=== PATIENT | female | born 1965 | race Two or more races ===

== ENCOUNTER 2017-08-16 17:03 | Emergency (ER) | payer MEDICAID ==
[~2017-08-16] VITALS: Ht 154.9 cm; Wt 85.3 kg
[2017-08-16 17:52] LABS: HEMATOCRIT 42.6 % (34.6-47.8); HEMOGLOBIN 14.3 g/dL (11.7-16.4); WHITE BLOOD COUNT 9.4 x10^3/uL (3.4-10)
[2017-08-16] MEDS ORDERED: SODIUM CHLORIDE 0.9% 1,000ML IVBOLUS ONE (18:00)
[2017-08-16] MEDS ORDERED: SODIUM CHLORIDE FLUSH 10ML SYR IVF ONE (18:00)
[2017-08-16 18:03] LABS: ASPARTATE AMINO TRANSFERASE 23 U/L (15-37); BLOOD UREA NITROGEN 12 mg/dL (7-18)
[2017-08-16 19:10] VITALS: BP 128/73
== END 2017-08-16 19:15 | disposition home or self-care (01) ==
LOC: MERGE 17:03 → ED 17:59
DX: E11.65 Type 2 diabetes mellitus with hyperglycemia (principal); H92.03 Otalgia, bilateral; I10 Essential (primary) hypertension
CPT/HCPCS: 36415; 80053; 81003; 82962; 85025; 93005; 96360; 99285; J7030